=== PATIENT | male | born 1995 | race Caucasian/White ===

== ENCOUNTER 2016-07-21 01:26 | Emergency (ER) | payer OTHER ==
[~2016-07-21] VITALS: Ht 182.9 cm; Wt 87.6 kg
[2016-07-21 01:30] VITALS: TEMP 98
[2016-07-21] MEDS ORDERED: MULTI VITAMINS1 TAB PO (01:35)
[2016-07-21 02:08] LABS: BASO # 0.1 (0.0-0.2); BASO % 0.9 % (0.0-2.0); EOS # 0.6 (0.0-0.7); EOS % 5.7 % (0-4.0); GRAN # 4.6 (1.4-6.5); GRAN % 44.3 % (42.2-75.2); HEMATOCRIT 42.3 % (42.0-52.0); HEMOGLOBIN 14.4 g/dl (13.5-18.0); LYMPH # 4.3 (1.2-3.4); LYMPH % 41.1 % (20.0-51.0); MEAN CELL VOLUME 91 fl (80.0-100.0); MEAN CORPUSCULAR HEMOGLOBIN 31 pg (27.0-31.0); MEAN CORPUSCULAR HGB CONC 34 g/dl (33.0-37.0); MEAN PLATELET VOLUME 10.8 fl (7.4-10.4); MONO # 0.8 (0.1-0.6); MONO % 7.5 % (1.7-9.3); PLATELET COUNT 229 K/mm3 (130-400); RED BLOOD COUNT 4.64 M/mm3 (4.20-5.60); REDCELL DISTRIBUTION WIDTH-CV 12.5 % (11.5-14.5); WHITE BLOOD COUNT 10.4 K/mm3 (4.8-10.8)
[2016-07-21 02:18] LABS: PH 7 (5-8); SQUAMOUS EPITHELIAL None Seen /hpf; URINE APPEARANCE Cloudy; URINE BACTERIA Rare /hpf; URINE BILIRUBIN Negative (NEGATIVE); URINE BLOOD Negative (NEGATIVE); URINE COLOR Yellow; URINE GLUCOSE Negative (NEGATIVE); URINE KETONE Negative (NEGATIVE); URINE RBC 0-2 /hpf; URINE UROBILINOGEN Negative (NEGATIVE); URINE WBC 0-2 /hpf
[2016-07-21 02:22] LABS: ALANINE AMINOTRANSFERASE 39 U/L (21-72); ALBUMIN 4.6 gm/dL (3.5-5.0); ALKALINE PHOSPHATASE 56 U/L (50-136); ANION GAP 13 mmol/L (7-16); BILIRUBIN,TOTAL 0.8 mg/dL (0.0-1.0); BLOOD UREA NITROGEN 20 mg/dL (9-20); CALCIUM 9.5 mg/dL (8.4-10.2); CARBON DIOXIDE 24 mmol/L (22-30); CHLORIDE 103 mmol/L (98-107); CREATININE, serum 1.05 mg/dL (0.66-1.25); GLUCOSE 93 mg/dL (74-106); LIPASE 60 U/L (23-300); SODIUM 139 mmol/L (137-145); TOTAL PROTEIN 7.9 gm/dL (6.4-8.2)
[2016-07-21 02:27] LABS: C-REACTIVE PROTEIN < 0.5 mg/dL (0.0-0.9)
[2016-07-21 03:05] VITALS: BP 126/88; PULSE 68
[2016-07-21 03:56] LABS: CHLAMYDIA/TRACH by PCR Male Not Detected; Neisseria Gon by PCR Male Not Detected
== END 2016-07-21 03:06 | disposition home or self-care (01) ==
LOC: COL.ER 01:26
PROVIDERS: Physician Assistant
DX: R10.31 Right lower quadrant pain (principal)
CPT/HCPCS: J7030; Q9967

== ENCOUNTER 2017-03-22 00:45 | Emergency (ER) | payer OTHER ==
[~2017-03-22] VITALS: Ht 182.9 cm; Wt 77.3 kg
[~2017-03-22 00:45] MED LIST: MULTI VITAMINS1 TAB PO
[2017-03-22 00:52] VITALS: BP 137/72; PULSE 102; TEMP 98
== END 2017-03-22 01:41 | disposition home or self-care (01) ==
LOC: COL.ER 00:45
DX: S01.81XA Laceration without foreign body of other part of head, initial encounter (principal); W25.XXXA Contact with sharp glass, initial encounter; Y92.009 Unspecified place in unspecified non-institutional (private) residence as the place of occurrence of the external cause

== ENCOUNTER 2017-06-11 00:58 | Emergency (ER) | payer OTHER ==
[~2017-06-11] VITALS: Ht 182.9 cm; Wt 81.8 kg
[2017-06-11 01:01] VITALS: BP 144/93; TEMP 97.1
[2017-06-11] MEDS ORDERED: DOXYCYCLINE HY100 MG PO (01:04)
[2017-06-11 01:27] LABS: COLLECTION METHOD CLEAN CATCH
[2017-06-11 01:54] LABS: MUCOUS Present /lpf; PH 6 (5-8); SQUAMOUS EPITHELIAL 0-2 /hpf; URINE APPEARANCE Hazy; URINE BACTERIA Rare /hpf; URINE BILIRUBIN Negative (NEGATIVE); URINE BLOOD Negative (NEGATIVE); URINE COLOR Yellow; URINE GLUCOSE Negative (NEGATIVE); URINE KETONE Negative (NEGATIVE); URINE LEUKOCYTE ESTERASE Negative (NEGATIVE); URINE PROTEIN(semi-quant) Negative (NEGATIVE); URINE RBC 0-2 /hpf; URINE UROBILINOGEN Negative (NEGATIVE); URINE WBC 0-2 /hpf
[2017-06-11 02:20] VITALS: PULSE 76
[2017-06-11 03:28] LABS: CHLAMYDIA/TRACH by PCR Male NOT DETECTED; Neisseria Gon by PCR Male NOT DETECTED
== END 2017-06-11 02:21 | disposition home or self-care (01) ==
LOC: COL.ER 00:58
PROVIDERS: Nurse Practitioner
DX: R30.0 Dysuria (principal); Z98.890 Other specified postprocedural states

== ENCOUNTER 2017-09-23 02:12 | Emergency (ER) | payer OTHER ==
[~2017-09-23 02:12] MED LIST changes: +DOXYCYCLINE HY100 MG PO
[2017-09-23 02:15] VITALS: BP 148/84; PULSE 97; TEMP 97.7
[2017-09-23] MEDS ORDERED: MULTI VITAMINS1 TAB PO (02:18)
[2017-09-23 03:04] LABS: COLLECTION METHOD CLEAN CATCH
[2017-09-23 03:11] LABS: MUCOUS Present /lpf; PH 5 (5-8); SQUAMOUS EPITHELIAL None Seen /hpf; URINE APPEARANCE Clear; URINE BACTERIA None Seen /hpf; URINE BILIRUBIN Negative (NEGATIVE); URINE BLOOD Negative (NEGATIVE); URINE COLOR Yellow; URINE GLUCOSE Negative (NEGATIVE); URINE KETONE Negative (NEGATIVE); URINE LEUKOCYTE ESTERASE Trace (NEGATIVE); URINE NITRATE Negative (NEGATIVE); URINE PROTEIN(semi-quant) Negative (NEGATIVE); URINE RBC 0-2 /hpf; URINE UROBILINOGEN Negative (NEGATIVE)
== END 2017-09-23 03:37 | disposition home or self-care (01) ==
LOC: COL.ER 02:12
PROVIDERS: Emergency Medicine
DX: R36.9 Urethral discharge, unspecified (principal); R30.0 Dysuria; Z87.442 Personal history of urinary calculi
CPT/HCPCS: J0696